=== PATIENT | female | born 1935 | race Hispanic/Latino ===

== ENCOUNTER 2023-04-03 15:13 | Inpatient (IN) | payer MEDICAID, SELFPAY ==
[~2023-04-03 15:13] MED LIST: Iopamidol-370 76% 500 ML MDV (1 ML CHARGE) ONE
[2023-04-03 16:46] LABS: #Monocytes 0.7 thou/uL (0.11-0.59); #Neutrophils 9.3 thou/uL (1.40-6.50); %Basophils 0.3 % (0.0-1.0); %Lymphocytes 12.9 % (21.0-51.0); %Monocytes 5.9 % (0.0-10.0); %Neutrophils 80.4 % (42.0-75.0); Hematocrit 35.4 % (36.0-47.0); Hemoglobin 11.5 g/dL (12.0-16.0); Mean Corpuscular HGB CONC 32.5 g/dL (32.0-36.0); Mean Corpuscular Hemoglobin 29.1 pg (27.0-31.0); Mean Corpuscular Volume 89.6 fl (78.0-98.0); Mean Platelet Volume 10.6 fL (7.4-10.4); Platelet Count 323 10x3/uL (130-400); RBC Distribution Width 14.6 % (11.5-14.5); Red Blood Cell (RBC) Count 3.95 mill/uL (4.20-5.40); White Blood Cell (WBC) Count 11.6 10x3/uL (4.8-10.8)
[2023-04-03 17:16] LABS: ALT (SGPT) 19 U/L (8-55); AST (SGOT) 13 U/L (5-34); Albumin 3.2 g/dL (3.4-4.8); Alkaline Phosphatase 152 U/L (40-110); Anion Gap 15 mmol/L (10-20); BUN (Urea Nitrogen) 22 mg/dL (9.8-20.1); Bilirubin, Total 1.1 mg/dL (0.2-1.2); Calc. Creatinine Clearance 0 mL/min (70-130); Calcium 8.8 mg/dL (7.8-10.44); Carbon Dioxide 21 mmol/L (23-31); Chloride 104 mmol/L (98-107); Estimated GFR 84; Glucose 207 mg/dL (83-110); Lipase 25 U/L (8-78); Potassium 4.3 mmol/L (3.5-5.1); Protein, Total 6.2 g/dL (5.8-8.1); Sodium 136 mmol/L (136-145)
[2023-04-03 17:17] LABS: Troponin I 0.143 ng/mL (< 0.028)
[2023-04-03] MEDS ORDERED: Azithromycin 500 MG VIAL ONE (19:08)
[2023-04-03] MEDS ORDERED: cefTRIAXone (ROCEPHIN) 2 GM VIAL ONE (19:09)
[2023-04-03] MEDS ORDERED: Sodium Chloride 0.9% 100 ML ONE (19:09)
[2023-04-03] MEDS ORDERED: Ipratropium/Albuterol 3 ML NEB NEB PRN (19:10)
[2023-04-03] MEDS ORDERED: Glucagon 1 MG/ML KIT IM PRN (19:11)
[2023-04-03] MEDS ORDERED: Dextrose 5% in Water 1,000 ML IV PRN (19:11)
[2023-04-03] MEDS ORDERED: Dextrose 50% Abboject 50 ML SYRINGE SLOW IVP PRN (19:11)
[2023-04-03] MEDS ORDERED: Ondansetron ODT 4 MG TAB PO PRN (19:13)
[2023-04-03] MEDS ORDERED: Ondansetron PF 4 MG/2 ML Vial IVP PRN (19:13)
[2023-04-03 19:33] LABS: Hemoglobin A1c 6.3 % (4.0-6.0)
[2023-04-03 19:35] LABS: Troponin I 0.147 ng/mL (< 0.028)
[2023-04-03] MEDS ORDERED: cefTRIAXone\\ROCEPHIN 1 GM in Sodium Chloride 0.9% 100 ML IVPB SCH (20:00)
[2023-04-03] MEDS ORDERED: Doxycycline 100 MG CAP PO SCH (21:00)
[2023-04-03 22:35] LABS: Troponin I 0.132 ng/mL (< 0.028)
[2023-04-03] MEDS ORDERED: Metoprolol Tartrate 50 MG TAB ONE (23:24)
[2023-04-03] MEDS ORDERED: Famotidine 20 MG TAB ONE (23:24)
[2023-04-03] MEDS ORDERED: Apixaban 5 MG TAB ONE (23:24)
[2023-04-03] MEDS ORDERED: Doxycycline 100 MG CAP ONE (23:24)
[2023-04-03] MEDS ORDERED: Furosemide 20 MG (2 mL) VIAL ONE (23:24)
[2023-04-03] MEDS ORDERED: cefTRIAXone (ROCEPHIN) 1 GM VIAL ONE (23:24)
[2023-04-03 23:37] LABS: Lactic Acid 1.9 mmol/L (0.5-2.2)
[2023-04-04] MEDS: Famotidine 20 MG TAB PO SCH (00:49)
[2023-04-04] MEDS: Furosemide 20 MG (2 mL) VIAL SLOW IVP SCH (00:49)
[2023-04-04] MEDS: Famotidine/PF 20 mg/2ml Vial SLOW IVP SCH (00:49)
[2023-04-04] MEDS: Apixaban 2.5 MG TAB PO SCH (00:49)
[2023-04-04] MEDS: Carvedilol 3.125 MG TAB PO SCH (00:49)
[2023-04-04] MEDS: Metoprolol Tartrate 50 MG TAB PO SCH (00:50)
[2023-04-04 07:17] LABS: #Monocytes 0.6 thou/uL (0.11-0.59); #Neutrophils 5.6 thou/uL (1.40-6.50); %Basophils 0.5 % (0.0-1.0); %Lymphocytes 21.3 % (21.0-51.0); %Monocytes 7.5 % (0.0-10.0); %Neutrophils 69.8 % (42.0-75.0); Hematocrit 35.5 % (36.0-47.0); Hemoglobin 11.5 g/dL (12.0-16.0); Mean Corpuscular HGB CONC 32.4 g/dL (32.0-36.0); Mean Corpuscular Hemoglobin 28.8 pg (27.0-31.0); Mean Platelet Volume 10.4 fL (7.4-10.4); Platelet Count 319 10x3/uL (130-400); RBC Distribution Width 14.6 % (11.5-14.5); Red Blood Cell (RBC) Count 3.99 mill/uL (4.20-5.40)
[2023-04-04 07:48] LABS: ALT (SGPT) 17 U/L (8-55); AST (SGOT) 12 U/L (5-34); Albumin 2.8 g/dL (3.4-4.8); Alkaline Phosphatase 126 U/L (40-110); Anion Gap 12 mmol/L (10-20); BUN (Urea Nitrogen) 16 mg/dL (9.8-20.1); Bilirubin, Total 0.5 mg/dL (0.2-1.2); Calc. Creatinine Clearance 72 mL/min (70-130); Calcium 8.8 mg/dL (7.8-10.44); Carbon Dioxide 28 mmol/L (23-31); Chloride 102 mmol/L (98-107); Estimated GFR 82; Globulin 3.6 g/dL (2.4-3.5); Glucose 163 mg/dL (83-110); Magnesium 1.1 mg/dL (1.6-2.6); Potassium 3.8 mmol/L (3.5-5.1); Protein, Total 6.4 g/dL (5.8-8.1); Sodium 138 mmol/L (136-145)
[2023-04-04 09:04] LABS: SARS-CoV-2 NAA Rapid Test Not Detected (NotDetected)
[2023-04-04] MEDS ORDERED: Furosemide 40 MG TAB ONE (10:09)
[2023-04-04] MEDS ORDERED: Famotidine 20 MG TAB ONE (10:10)
[2023-04-04] MEDS ORDERED: Metoprolol Tartrate 50 MG TAB ONE (10:10)
[2023-04-04] MEDS ORDERED: Apixaban 5 MG TAB ONE (10:10)
[2023-04-04] MEDS ORDERED: Carvedilol 6.25 MG TAB ONE (10:10)
[2023-04-04] MEDS ORDERED: Lisinopril 5 MG TAB ONE (10:10)
[2023-04-04 10:40] LABS: Legionella Urinary Ag Negative (Negative)
[2023-04-04] MEDS: Empagliflozin 10 MG TAB PO SCH (12:20)
[2023-04-04] MEDS: Lisinopril 2.5 MG TAB PO SCH (13:54)
[2023-04-04] MEDS: Furosemide 20 MG TAB PO SCH (13:54)
[2023-04-04] MEDS: FLU VACC QS2023(65UP)/MF59C/PF 60 MCG/0.5 ML SYRINGE IM ONE (16:07)
[2023-04-04] MEDS: HumaLOG 300 UNITS/3 ML VIAL SC PRN (17:47)
[2023-04-04] MEDS: Lisinopril 10 MG TAB PO SCH (23:28)
[2023-04-05 06:46] LABS: Anion Gap 13 mmol/L (10-20); BUN (Urea Nitrogen) 16 mg/dL (9.8-20.1); Calc. Creatinine Clearance 53 mL/min (70-130); Calcium 8.8 mg/dL (7.8-10.44); Carbon Dioxide 26 mmol/L (23-31); Cardiac Risk 6.1 (Less than 4.5); Chloride 103 mmol/L (98-107); Cholesterol 128 mg/dl (< 200 Desired); Estimated GFR 72; Glucose 180 mg/dL (83-110); HDL Cholesterol 21 mg/dL (>60 Neg Risk); LDL Cholesterol, Calculated 81 mg/dL; Potassium 3.8 mmol/L (3.5-5.1); Sodium 138 mmol/L (136-145); Triglycerides 130 mg/dL (Less than 150)
[2023-04-05 09:44] VITALS: BMI 25.9
[2023-04-05] MEDS: Carvedilol 6.25 MG TAB PO SCH (16:24)
[2023-04-05] MEDS: Magnesium Sulfate In Water 4 GM in Premix 1 BAG IVPB SCH (16:24)
[2023-04-05] MEDS: Furosemide 20 MG (2 mL) VIAL SLOW IVP SCH (16:25)
[2023-04-05] MEDS: HumaLOG 300 UNITS/3 ML VIAL SC PRN (22:55)
[2023-04-06 05:51] LABS: Anion Gap 12 mmol/L (10-20); BUN (Urea Nitrogen) 16 mg/dL (9.8-20.1); Calc. Creatinine Clearance 57 mL/min (70-130); Calcium 8.7 mg/dL (7.8-10.44); Carbon Dioxide 29 mmol/L (23-31); Chloride 99 mmol/L (98-107); Estimated GFR 80; Glucose 136 mg/dL (83-110); Potassium 3.9 mmol/L (3.5-5.1); Sodium 136 mmol/L (136-145)
[2023-04-06] MEDS: Furosemide 20 MG (2 mL) VIAL SLOW IVP SCH (09:24)
[2023-04-06] MEDS: Sacubitril 24MG/Valsartan 26 MG TAB PO SCH (21:53)
[2023-04-07] MEDS: Acetaminophen 325 MG TAB PO PRN (01:59)
[2023-04-07 04:59] LABS: Anion Gap 11 mmol/L (10-20); BUN (Urea Nitrogen) 19 mg/dL (9.8-20.1); Calc. Creatinine Clearance 53 mL/min (70-130); Calcium 8.9 mg/dL (7.8-10.44); Carbon Dioxide 28 mmol/L (23-31); Chloride 100 mmol/L (98-107); Estimated GFR 73; Glucose 173 mg/dL (83-110); Potassium 4.1 mmol/L (3.5-5.1); Sodium 135 mmol/L (136-145)
[2023-04-07 16:05] VITALS: BP 142/77; TEMP 97.9
[2023-04-08] MEDS ORDERED: Furosemide 20 MG TAB PO SCH (09:00)
== END 2023-04-07 17:00 | disposition home or self-care (01) | DRG 280 ==
LOC: ERS 15:13 → ERHOLD 18:46 → 2NO 04-04 15:21
PROVIDERS: ADMIT Student in an Organized Health Care Education/Training Program; ATTEND Internal Medicine
DX: I11.0 Hypertensive heart disease with heart failure (principal); I21.A1 Myocardial infarction type 2; I50.23 Acute on chronic systolic (congestive) heart failure; J96.01 Acute respiratory failure with hypoxia; E87.1 Hypo-osmolality and hyponatremia; E11.9 Type 2 diabetes mellitus without complications; K21.9 Gastro-esophageal reflux disease without esophagitis; N63.0 Unspecified lump in unspecified breast; E87.6 Hypokalemia; E83.42 Hypomagnesemia; I34.0 Nonrheumatic mitral (valve) insufficiency; Z79.899 Other long term (current) drug therapy; Z79.01 Long term (current) use of anticoagulants; Z98.890 Other specified postprocedural states; Z86.718 Personal history of other venous thrombosis and embolism; Z11.52 Encounter for screening for COVID-19
CPT/HCPCS: 0241U; 36415; 36416; 71046; 71275; 80048; 80053; 80061; 83036; 83605; 83690; 83735; 83880; 84145; 84443; 84484; 85025; 87899; 93005; 93306; 93798; 96365; 96366; 96367; J0456; J0696; J1815; J1940; J3475; J3490; Q9967

== ENCOUNTER 2023-04-29 11:54 | Inpatient (IN) | payer MEDICAID ==
[2023-04-29] MEDS ORDERED: Ondansetron PF 4 MG/2 ML Vial ONE (12:24)
[2023-04-29] MEDS ORDERED: Famotidine/PF 20 mg/2ml Vial ONE (12:24)
[2023-04-29 12:34] LABS: #Monocytes 0.4 thou/uL (0.11-0.59); #Neutrophils 5.7 thou/uL (1.40-6.50); %Basophils 0.3 % (0.0-1.0); %Lymphocytes 18.6 % (21.0-51.0); %Monocytes 5.3 % (0.0-10.0); %Neutrophils 75.4 % (42.0-75.0); Hematocrit 32.1 % (36.0-47.0); Hemoglobin 10.6 g/dL (12.0-16.0); Mean Corpuscular Hemoglobin 29.4 pg (27.0-31.0); Mean Corpuscular Volume 88.9 fl (78.0-98.0); Mean Platelet Volume 9.8 fL (7.4-10.4); Platelet Count 324 10x3/uL (130-400); Red Blood Cell (RBC) Count 3.61 mill/uL (4.20-5.40); White Blood Cell (WBC) Count 7.6 10x3/uL (4.8-10.8)
[2023-04-29 12:52] LABS: ALT (SGPT) 10 U/L (8-55); AST (SGOT) 12 U/L (5-34); Albumin 3.7 g/dL (3.4-4.8); Alkaline Phosphatase 105 U/L (40-110); Anion Gap 15 mmol/L (10-20); BUN (Urea Nitrogen) 19 mg/dL (9.8-20.1); Bilirubin, Total 0.4 mg/dL (0.2-1.2); Calc. Creatinine Clearance 0 mL/min (70-130); Carbon Dioxide 25 mmol/L (23-31); Chloride 101 mmol/L (98-107); Estimated GFR 77; Globulin 3.4 g/dL (2.4-3.5); Glucose 131 mg/dL (83-110); Lipase 58 U/L (8-78); Potassium 4.2 mmol/L (3.5-5.1); Protein, Total 7.1 g/dL (5.8-8.1); Sodium 137 mmol/L (136-145)
[2023-04-29 12:54] LABS: Bacteria/HPF 4+ HPF (None Seen); Bilirubin Negative (Negative); Blood, Urine Negative (Negative); CAUTI Indications for Culture Dysuria,urgency,freq; Clarity Turbid (Clear); Glucose, Urine (Dipstick) Normal (Negative); Ketone, Urine Negative (Negative); Leukocyte 75 Leu/uL (Negative); Nitrite Negative (Negative); Protein, Urine (Dipstick) Negative (Neg-Trace); RBC/HPF 0-3 HPF (0-3); Specific Gravity, Urine 1.011 (1.002-1.036); Squamous Epithelial 0-3 HPF (0-3); Urobilinogen Normal mg/dL (Less than 2); pH, Urine 5.5 (5.0-9.0)
[2023-04-29 12:55] LABS: Troponin I 0.076 ng/mL (< 0.028)
[2023-04-29 12:56] LABS: Urine Culture Reflex Yes Yes
[2023-04-29] MEDS ORDERED: Iopamidol-370 76% 500 ML MDV (1 ML CHARGE) ONE (13:29)
[2023-04-29] MEDS ORDERED: Sodium Chloride 0.9% 100 ML ONE (16:20)
[2023-04-29] MEDS ORDERED: Piperacillin/Tazobactam 4.5 GM VIAL ONE (16:20)
[2023-04-29] MEDS ORDERED: Acetaminophen 650 MG Suppository PR PRN (17:20)
[2023-04-29] MEDS ORDERED: Glucagon 1 MG/ML KIT IM PRN (17:20)
[2023-04-29] MEDS ORDERED: HumaLOG 300 UNITS/3 ML VIAL SC PRN ×2 (17:20)
[2023-04-29] MEDS ORDERED: Dextrose 50% Abboject 50 ML SYRINGE SLOW IVP PRN (17:20)
[2023-04-29] MEDS ORDERED: Dextrose 5% in Water 1,000 ML IV PRN (17:20)
[2023-04-29] MEDS ORDERED: Ondansetron ODT 4 MG TAB PO PRN (17:20)
[2023-04-29] MEDS ORDERED: Ondansetron PF 4 MG/2 ML Vial IVP PRN (17:20)
[2023-04-29] MEDS ORDERED: Electrolyte Replacement Protocol 1 EACH FS SCH (17:30)
[2023-04-29 18:18] VITALS: BMI 27.3
[2023-04-29] MEDS: Piperacillin/Tazobactam 3.375 GM in Sodium Chloride 0.9% 100 ML IVPB SCH (20:45)
[2023-04-29] MEDS: Pantoprazole 40 MG VIAL IVP SCH (20:45)
[2023-04-30] MEDS: Acetaminophen 325 MG TAB PO PRN (00:59)
[2023-04-30 04:41] LABS: #Monocytes 0.4 thou/uL (0.11-0.59); #Neutrophils 4.2 thou/uL (1.40-6.50); %Basophils 0.2 % (0.0-1.0); %Lymphocytes 21.2 % (21.0-51.0); %Monocytes 6.7 % (0.0-10.0); %Neutrophils 71.6 % (42.0-75.0); Hematocrit 29.2 % (36.0-47.0); Hemoglobin 9.5 g/dL (12.0-16.0); Mean Corpuscular HGB CONC 32.5 g/dL (32.0-36.0); Mean Corpuscular Hemoglobin 29.1 pg (27.0-31.0); Mean Corpuscular Volume 89.6 fl (78.0-98.0); Mean Platelet Volume 9.6 fL (7.4-10.4); Platelet Count 311 10x3/uL (130-400); Red Blood Cell (RBC) Count 3.26 mill/uL (4.20-5.40); White Blood Cell (WBC) Count 5.8 10x3/uL (4.8-10.8)
[2023-04-30 05:44] LABS: ALT (SGPT) 10 U/L (8-55); AST (SGOT) 27 U/L (5-34); Albumin 3.1 g/dL (3.4-4.8); Alkaline Phosphatase 84 U/L (40-110); Anion Gap 14 mmol/L (10-20); BUN (Urea Nitrogen) 16 mg/dL (9.8-20.1); Bilirubin, Total 0.4 mg/dL (0.2-1.2); Calc. Creatinine Clearance 53 mL/min (70-130); Calcium 8.7 mg/dL (7.8-10.44); Carbon Dioxide 25 mmol/L (23-31); Chloride 104 mmol/L (98-107); Estimated GFR 73; Globulin 3.3 g/dL (2.4-3.5); Glucose 94 mg/dL (83-110); Potassium 4.2 mmol/L (3.5-5.1); Protein, Total 6.4 g/dL (5.8-8.1); Sodium 139 mmol/L (136-145)
[2023-04-30] MEDS: Carvedilol 6.25 MG TAB PO SCH (17:31)
[2023-04-30] MEDS: metFORMIN 500 MG TAB PO SCH (17:31)
[2023-04-30] MEDS: Losartan 25 MG TAB PO SCH (20:36)
[2023-05-01 05:00] LABS: Hematocrit 31.2 % (36.0-47.0)
[2023-05-01 06:06] LABS: Anion Gap 13 mmol/L (10-20); BUN (Urea Nitrogen) 12 mg/dL (9.8-20.1); Calc. Creatinine Clearance 56 mL/min (70-130); Calcium 9.2 mg/dL (7.8-10.44); Carbon Dioxide 23 mmol/L (23-31); Chloride 105 mmol/L (98-107); Estimated GFR 78; Glucose 120 mg/dL (83-110); Potassium 4.3 mmol/L (3.5-5.1); Sodium 137 mmol/L (136-145)
[2023-05-01] MEDS ORDERED: Lidocaine 1% PF 5 ML VIAL ONE (10:09)
[2023-05-01] MEDS ORDERED: PROPOFOL 20 ML ONE (10:09)
[2023-05-01] MEDS ORDERED: Ketamine In 0.9 % NaCl 50 MG/5 ML SYRINGE ONE (10:14)
[2023-05-01] MEDS ORDERED: Ondansetron HCl/PF 4 MG/2 ML Vial IVP PRN (10:30)
[2023-05-01] MEDS: Alogliptin 6.25 MG TAB PO SCH (12:22)
[2023-05-02 10:02] LABS: #Monocytes 0.4 thou/uL (0.11-0.59); #Neutrophils 4.3 thou/uL (1.40-6.50); %Basophils 0.3 % (0.0-1.0); %Lymphocytes 22.3 % (21.0-51.0); %Monocytes 6.2 % (0.0-10.0); %Neutrophils 70.9 % (42.0-75.0); Hematocrit 33.7 % (36.0-47.0); Hemoglobin 10.8 g/dL (12.0-16.0); Mean Corpuscular Hemoglobin 28.8 pg (27.0-31.0); Mean Corpuscular Volume 89.9 fl (78.0-98.0); Mean Platelet Volume 9.4 fL (7.4-10.4); Platelet Count 350 10x3/uL (130-400); Red Blood Cell (RBC) Count 3.75 mill/uL (4.20-5.40); White Blood Cell (WBC) Count 6.1 10x3/uL (4.8-10.8)
[2023-05-02] MEDS: Sucralfate 1 GM/10 ML UDCUP PO SCH (15:59)
[2023-05-03 05:58] LABS: #Monocytes 0.4 thou/uL (0.11-0.59); %Basophils 0.3 % (0.0-1.0); %Monocytes 6.3 % (0.0-10.0); %Neutrophils 66.9 % (42.0-75.0); Hematocrit 30.5 % (36.0-47.0); Hemoglobin 9.8 g/dL (12.0-16.0); Mean Corpuscular HGB CONC 32.1 g/dL (32.0-36.0); Mean Corpuscular Hemoglobin 29.1 pg (27.0-31.0); Mean Corpuscular Volume 90.5 fl (78.0-98.0); Mean Platelet Volume 9.4 fL (7.4-10.4); Platelet Count 323 10x3/uL (130-400); RBC Distribution Width 13.7 % (11.5-14.5); Red Blood Cell (RBC) Count 3.37 mill/uL (4.20-5.40)
[2023-05-03 06:06] LABS: Anion Gap 13 mmol/L (10-20); BUN (Urea Nitrogen) 8 mg/dL (9.8-20.1); Calc. Creatinine Clearance 61 mL/min (70-130); Carbon Dioxide 24 mmol/L (23-31); Chloride 106 mmol/L (98-107); Estimated GFR 84; Glucose 119 mg/dL (83-110); Sodium 139 mmol/L (136-145)
[2023-05-04] MEDS ORDERED: Electrolyte Replacement Protocol FS PRN (08:45)
[2023-05-04] MEDS ORDERED: Lidocaine 1% PF 5 ML VIAL ONE (10:10)
[2023-05-04] MEDS ORDERED: PROPOFOL 20 ML ONE (10:10)
[2023-05-05 05:21] LABS: #Monocytes 0.4 thou/uL (0.11-0.59); #Neutrophils 3.9 thou/uL (1.40-6.50); %Basophils 0.3 % (0.0-1.0); %Lymphocytes 27.5 % (21.0-51.0); %Monocytes 7.3 % (0.0-10.0); %Neutrophils 64.4 % (42.0-75.0); Hematocrit 31.4 % (36.0-47.0); Mean Corpuscular HGB CONC 31.8 g/dL (32.0-36.0); Mean Corpuscular Hemoglobin 28.2 pg (27.0-31.0); Mean Corpuscular Volume 88.5 fl (78.0-98.0); Mean Platelet Volume 9.7 fL (7.4-10.4); Platelet Count 312 10x3/uL (130-400); RBC Distribution Width 13.9 % (11.5-14.5); Red Blood Cell (RBC) Count 3.55 mill/uL (4.20-5.40)
[2023-05-05 05:45] LABS: Anion Gap 13 mmol/L (10-20); BUN (Urea Nitrogen) 9 mg/dL (9.8-20.1); Calc. Creatinine Clearance 56 mL/min (70-130); Calcium 9.2 mg/dL (7.8-10.44); Carbon Dioxide 26 mmol/L (23-31); Chloride 104 mmol/L (98-107); Estimated GFR 80; Glucose 124 mg/dL (83-110); Potassium 4.2 mmol/L (3.5-5.1); Sodium 139 mmol/L (136-145)
[2023-05-06 10:58] VITALS: BP 116/75; TEMP 97.8
== END 2023-05-06 16:51 | disposition home or self-care (01) | DRG 375 ==
LOC: ERS 11:54 → ERHOLD 15:23 → 2NO 18:09 → MSONC 05-03 14:51
PROVIDERS: ADMIT Family Medicine; ATTEND Hospitalist
PROC: 0DB68ZX Excision of Stomach, Via Natural or Artificial Opening Endoscopic, Diagnostic (ICD-10-PCS; principal; 2023-05-01)
PROC: 0DB68ZX Excision of Stomach, Via Natural or Artificial Opening Endoscopic, Diagnostic (ICD-10-PCS; 2023-05-04)
DX: C16.9 Malignant neoplasm of stomach, unspecified (principal); I50.22 Chronic systolic (congestive) heart failure; N39.0 Urinary tract infection, site not specified; K25.9 Gastric ulcer, unspecified as acute or chronic, without hemorrhage or perforation; E11.9 Type 2 diabetes mellitus without complications; I11.0 Hypertensive heart disease with heart failure; I25.2 Old myocardial infarction; Z86.718 Personal history of other venous thrombosis and embolism; D64.9 Anemia, unspecified
CPT/HCPCS: 36415; 36416; 71045; 71260; 74177; 80048; 80053; 81001; 83690; 84484; 85014; 85018; 85025; 87040; 87077; 87086; 87186; 88305; 88342; 93005; 93970; 96365; 96375; C9113; J2405; J2543; J2704; J3490; Q9967; S0028